=== PATIENT | male | born 1935 ===

== ENCOUNTER → 2018-04-17 | Outpatient (CLI) | payer OTHER | END | disposition home or self-care (01) | LOC: NUCLEAR 11:30 | DX: I73.9 Peripheral vascular disease, unspecified (principal) ==

== ENCOUNTER 2018-05-03 12:13 | Outpatient (CLI) | payer OTHER | END 2018-05-03 15:29 | disposition home or self-care (01) | LOC: RAD 12:13 | DX: C67.9 Malignant neoplasm of bladder, unspecified (principal); N13.39 Other hydronephrosis ==